=== PATIENT | female | born 1945 | race Caucasian/White ===

== ENCOUNTER 2020-08-30 17:32 | Emergency (ER) | payer MEDICARE ==
[~2020-08-30] VITALS: Ht 165.1 cm; Wt 61.4 kg
[2020-08-30 18:20] VITALS: TEMP 97.6
[2020-08-30 21:00] VITALS: BP 134/70; PULSE 76
== END 2020-08-30 21:00 | disposition home or self-care (01) ==
LOC: COL.ER 17:32
DX: M70.52 Other bursitis of knee, left knee (principal)
CPT/HCPCS: J1885